=== PATIENT | male | born 1965 | race Caucasian/White ===

== ENCOUNTER 2018-11-16 07:05 | Day surgery (SDC) | payer OTHER ==
[2018-11-16] MEDS ORDERED: FENTAnyl 50 MCG/ML VIAL (08:38)
[2018-11-16] MEDS ORDERED: PROPOFOL 20 ML (08:38)
== END 2018-11-16 11:09 | disposition home or self-care (01) ==
LOC: GIL 07:05
DX: Z12.11 Encounter for screening for malignant neoplasm of colon (principal); K64.8 Other hemorrhoids; E78.5 Hyperlipidemia, unspecified
CPT/HCPCS: 45378